=== PATIENT | female | born 1985 | race Caucasian/White ===

== ENCOUNTER 2025-01-02 18:04 | Emergency (ER) | payer MEDICAID ==
[2025-01-02 18:23] VITALS: BP 170/115; PULSE 94; TEMP 98.1; O2SAT 97
[2025-01-02] MEDS ORDERED: TORAdol 30 mg Injection ONE (18:32)
--- NOTE | 2025-01-02 18:33 | ERPHSYRPT ---
- History of Present Illness Time Seen by Provider: 01/02/25 18:20 Source: patient Exam Limitations: no limitations Patient Subjective Stated Complaint: pt c/o of right upper leg burning pain on the anterior side that feels like needles are poking her, has been going on for about a year about once a month for a day at a time but it has been about a week this time, pt does not have a PCP Triage Nursing Assessment: Pt brought to the ER by her son, hypertensive, rates pain as a 5/10 but it does go up to a 9/10, no visible markings on leg, pulses normal, skin n/w/d, doesn't appear to be in any distress Physician History: 39 years old female presented in the ER with complaints of right anterior thigh burning sensations off and on for quite some time and lately getting worse. Patient reports burning sensations getting worse even with putting on her pants, continuous, no significant aggravating or relieving factors. Denies any back pain. No swelling of thigh. No pain in the medial and posterior aspect of thig h. No fall or trauma. Allergies/Adverse Reactions: No Known Drug Allergies Allergy (Verified 01/02/25 18:24) Hx Influenza Vaccination/Date Given: No Hx Pneumococcal Vaccination/Date Given: No Travel Risk - International Travel Have you traveled outside of the country in past 3 weeks: No - Emerging Infectious Disease Are you exhibiting symptoms associated with any current EIDs: No - Review of Systems Constitutional: No Symptoms Ears, Nose, & Throat: No Symptoms Respiratory: No Symptoms Cardiac: No Symptoms Abdominal/Gastrointestinal: No Symptoms Genitourinary Symptoms: No Symptoms Musculoskeletal: No Symptoms Neurological: Parasthesia Psychological: No Symptoms Endocrine: No Symptoms - Past Medical History Pertinent Past Medical History: No - Past Surgical History Past Surgical History: Yes Female Surgical History: Tubal Ligation - Female History Hx Now: No (tubal) - Social History Smoking Status: Current every day smoker Exposure to second hand smoke: Yes Drug Use: none - Social Determinants of Health Will the patient participate in the screening: Yes Do you worry about a steady place to live?: No Do you have any problems with any of the following?: No known problems In the past 12 months,have you had to go without utilities?: No Transportation Issues: No Has anyone in your support network made you feel unsafe?: No Have you or anyone in your house had to go w/o enough food: No - Nursing Vital Signs Nursing Vital Signs: Initial Vital Signs Temperature 98.1 F 01/02/25 18:14 Pulse Rate 94 H 01/02/25 18:14 Blood Pressure 170/115 01/02/25 18:14 O2 Sat by Pulse Oximetry 97 01/02/25 18:14 Pain Scale Pain Intensity 2 - Physical Exam General Appearance: no apparent distress Eye Exam: PERRL/EOMI Ears, Nose, Throat Exam: normal ENT inspection Neck Exam: normal inspection Respiratory Exam: normal breath sounds, lungs clear Cardiovascular Exam: regular rate/rhythm, normal heart sounds Gastrointestinal/Abdomen Exam: soft, No tenderness Back Exam: normal inspection, normal range of motion Extremity Exam: normal inspection, normal range of motion, pelvis stable Neurologic Exam: alert, oriented x 3, cooperative, wood mechanist II-XII nml as tested, normal mood/affect, nml cerebellar function, nml station & gait, sensation nml (Increase sensitivity to touch right anterior thigh) Skin Exam: normal color, warm SpO2 Interpretation: normal SpO2: 97 O2 Delivery: Room Air Ordered Tests: Medication Summary Discontinued Medications Generic Name Dose Route Start Last Admin Trade Name Freq PRN Reason Stop Dose Admin Ketorolac Tromethamine 30 mg 01/02/25 18:25 01/02/25 18:34 Ketorolac Tromethamine 30 Mg/Ml Inj IM 01/02/25 18:26 30 mg STAT ONE Administration Ketorolac Tromethamine Confirm 01/02/25 18:32 Ketorolac Tromethamine 30 Mg/Ml Inj Administered 01/02/25 18:33 Dose 30 mg .ROUTE .STK-MED ONE - Progress Progress Note: 01/02/25 18:41 39-year-old is evaluated in the ER for right anterior thigh burning pain with hyperesthesia/hypersensitivity. Patient pain is pretty typical of neuropathic. She is given Toradol for symptomatic relief and started on Cymbalta. *Recommended outpatient follow-up. No signs of cellulitis, no less concern for DVT. Discussed signs symptoms of worsening needing return to ER which she seems understanding. Stable for discharge. - Departure Departure Disposition: Home Clinical Impression: Neuropathic pain of right thigh Condition: Stable Critical Care Time: No Referrals: CONOR MIGUEL MD [ACTIVE STAFF] - Follow up/PCP as directed (Call for appointment for reevaluation) Instructions: Neuropathic pain Additional Instructions: Follow-up with primary care for reevaluation. Return to ER for worsening of pain or if develop swelling, redness, fever chills etc. Prescriptions: Duloxetine HCl 30 mg [Cymbalta 30 MG Capsule] 30 mg PO DAILY 30 Days #30 cap
[2025-01-02] MEDS: TORAdol 30 mg Injection IM ONE (18:34)
== END 2025-01-02 19:08 | disposition home or self-care (01) ==
LOC: ED 18:04
DX: M79.2 Neuralgia and neuritis, unspecified (principal); M79.651 Pain in right thigh; Z79.899 Other long term (current) drug therapy; Z72.0 Tobacco use
CPT/HCPCS: 96372; 99282; 99283; J1885